=== PATIENT | male | born 1975 | race Caucasian/White ===

== ENCOUNTER 2017-09-15 00:57 | Inpatient (IN) | END 2017-09-17 18:30 | disposition home or self-care (01) | DRG 293 ==

== ENCOUNTER 2018-09-21 12:20 | Observation (INO) | payer MEDICAID, OTHER ==
[~2018-09-21] VITALS: Ht 157.5 cm; Wt 97.4 kg
[~2018-09-21 12:20] MED LIST: CARV3.1260 PO; FURO40TA4 PO; LISI-313 PO; NICO2GUM7 BUCCAL
[2018-09-21] MEDS ORDERED: hydrALAzine 20 MG INJ IV ONE (17:00)
--- NOTE | 2018-09-21 17:15 | ERD ---
ER Documentation Chief Complaint Chief Complaint figueroa, no htn meds x5 mo HPI 43-year-old male with a history of hypertension and combined CHF with last EF 30% in 2018 presenting with complaints of headache and nausea. He has been expe riencing a headache for the past 2 weeks. It is occipital, throbbing, currently 5 out of 10, with occasional blurriness of his vision. Denies any chest pain, shortness of breath, focal weakness or numbness. However he has been experiencing some nausea. He has been off of his antihypertensives for the past 6 months because he did not have insurance or a primary care doctor. Today the headache became more severe overnight, which concerned him, and he came to the ER for evaluation. ROS All systems reviewed and are negative except as per history of present illness. Medications Home Meds Active Scripts Furosemide* (Furosemide*) 40 Mg Tablet, 40 MG PO DAILY for 30 Days, #30 TAB Prov:JASWANT MARTINEZ MD 09/17/17 Lisinopril* (Lisinopril*) 5 Mg Tablet, 5 MG PO DAILY for 30 Days, #30 TAB Prov:JASWANT MARTINEZ MD 09/17/17 Carvedilol* (Carvedilol*) 3.125 Mg Tablet, 3.125 MG PO BID for 30 Days, #60 TAB Prov:JASWANT MARTINEZ MD 09/17/17 Discontinued Scripts Nicotine Polacrilex (Nicorette) 2 Mg Gum, 2 MG BUCCAL Q2H PRN for smoking request for 30 Days, #30 EA Prov:JASWANT MARTINEZ MD 09/17/17 Allergies Allergies: Coded Allergies: No Known Allergy (Unverified , 09/14/17) PMhx/Soc History of Surgery: No Anesthesia Reaction: No Hx Neurological Disorder: No Hx Respiratory Disorders: No Hx Cardiac Disorders: Yes (HTN, combined CHF EF 30%) Hx Psychiatric Problems: No Hx Miscellaneous Medical Probl: Yes (CHF) Hx Alcohol Use: No Hx Substance Use: No Hx Tobacco Use: Yes Smoking Status: Current every day smoker FmHx Family History: diabetes, coronary disease Physical Exam Vitals Vital Signs Date Temp Pulse Resp B/P (MAP) Pulse Ox O2 O2 Flow FiO2 Time Delivery Rate 09/21/18 93 17 128/97 98 Room Air 20:05 (107) 09/21/18 187/106 18:17 (133) 09/21/18 188/101 17:46 (130) 09/21/18 172/107 17:23 (128) 09/21/18 98.4 82 20 228/135 98 12:47 (166) Physical Exam Const: No acute distress Head: Atraumatic Eyes: Normal Conjunctiva, PERRLA, EOMI, no nystagmus ENT: Normal External Ears, Nose and Mouth. Neck: Full range of motion. No meningismus. Resp: Clear to auscultation bilaterally Cardio: Regular rate and rhythm, no murmurs Abd: Soft, non tender, non distended. Normal bowel sounds. 2+ distal pulses in all 4 extremities Skin: No petechiae or rashes Back: No midline or flank tenderness Ext: No cyanosis, or edema Neur: Awake and alert, oriented, no facial asymmetry, normal speech. Drinks and sensations intact in all 4 extremities Psych: Normal Mood and Affect Result Diagram: 09/21/18 1703 09/21/18 1703 Results 24 hrs Laboratory Tests Test 09/21/18 17:03 White Blood Count 6.8 10^3/ul Red Blood Count 5.66 10^6/ul Hemoglobin 16.3 g/dl Hematocrit 47.1 % Mean Corpuscular Volume 83.2 fl Mean Corpuscular Hemoglobin 28.8 pg Mean Corpuscular Hemoglobin Concent 34.6 g/dl Red Cell Distribution Width 12.2 % Platelet Count 282 10^3/UL Mean Platelet Volume 9.5 fl Immature Granulocytes % 0.700 % Neutrophils % 68.5 % Lymphocytes % 18.8 % Monocytes % 7.7 % Eosinophils % 3.4 % Basophils % 0.9 % Nucleated Red Blood Cells % 0.0 /100WBC Immature Granulocytes # 0.050 10^3/ul Neutrophils # 4.6 10^3/ul Lymphocytes # 1.3 10^3/ul Monocytes # 0.5 10^3/ul Eosinophils # 0.2 10^3/ul Basophils # 0.1 10^3/ul Nucleated Red Blood Cells # 0.0 10^3/ul Sodium Level 144 mmol/L Potassium Level 3.2 mmol/L Chloride Level 106 mmol/L Carbon Dioxide Level 29 mmol/L Anion Gap 9 Blood Urea Nitrogen 13 mg/dl Creatinine 1.03 mg/dl Est Glomerular Filtrat Rate mL/min > 60 mL/min Glucose Level 103 mg/dl Calcium Level 8.9 mg/dl Troponin I 0.032 ng/ml Current Medications Medications Dose Sig/Johana Start Time Status Last (Trade) Ordered Route PRN Stop Time Admin Dose Reason Admin Hydralazine 10 mg ONCE ONCE 09/21/18 DC 09/21/18 HCl IV 17:00 09/21/18 17:06 (Apresoline) 17:01 Ondansetron 4 mg ER BRIDGE 09/21/18 DC HCl (Zofran PRN IV 18:30 09/21/18 Inj) NAUSEA/VOMITI 18:56 NG 650 mg ER BRIDGE 09/21/18 DC Acetaminophen PRN PO 18:30 09/21/18 (Tylenol .MILD PAIN 18:56 Tab) 1-3 OR TEMP Carvedilol 3.125 mg BID PO 09/21/18 (Coreg) 21:00 Lisinopril 5 mg DAILY PO 09/21/18 (Zestril) 19:00 IV Flush 3 ml PER 09/21/18 (NS 3 ml) PROTOCOL IV 19:00 Ondansetron 4 mg Q6H PRN 09/21/18 HCl (Zofran PO 19:00 Tab) NAUSEA/VOMITI NG 650 mg Q6H PRN 09/21/18 Acetaminophen PO .PAIN 1-3 19:00 (Tylenol OR TEMP Tab) 1 tab Q6H PRN 09/21/18 09/21/18 Acetaminophen PO .PAIN 4-6 19:00 20:12 / Hydrocodone Bitart ([place] (5/325)) 2 tab Q6H PRN 09/21/18 Acetaminophen PO .PAIN 19:00 / 7-10 Hydrocodone Bitart ([place] (5/325)) Docusate 100 mg Q12H PRN 09/21/18 Sodium PO 19:00 (Colace) .CONSTIPATION Famotidine 20 mg Q12 PO 09/21/18 (Pepcid) 21:00 Enoxaparin 40 mg DAILY SC 09/21/18 Sodium 19:00 (Lovenox) Hydralazine 10 mg Q6H PRN 09/21/18 09/21/18 HCl IV ELEVATED 19:00 19:33 (Apresoline) BLOOD PRESSURE Procedures/MDM EMERGENT LABS AND DIAGNOSTIC STUDIES: Lab Results above were reviewed and interpreted by me. CBC: no anemia or evidence of infection BMP: Mild hypokalemia. No e/o clinically significant electrolyte abnormality severe acidosis, alkalosis, renal failure, diabetic ketoacidosis Troponin within normal limits, not indicative of cardiac ischemia 12-lead EKG was interpreted by Jaky Longoria MD: Sinus bradycardia with ventricular rate of 56 beats per minute Left axis deviation LVH Inferior lateral T wave inversions, concerning for acute ischemia. No acute STEMI Repeat EKG: Rate/Rhythm: Normal Sinus Rhythm QRS, ST, T-waves: Inferior lateral T wave inversions again seen. No ST elevations Impression: Abnormal EKG, possible ischemia, no STEMI Radiology Results as interpreted by Radiology below were reviewed by Rolando Longoria MD: Chest x-ray shows cardiomegaly without acute process Initial Nursing notes reviewed. Previous Medical Records requested via the Electronic Health Record. EMERGENCY DEPARTMENT COURSE / MEDICAL DECISION MAKING: Patient is presenting with severe hypertension, symptomatic with a headache. He was placed on monitors. EKG shows signs of ischemia but troponin is negative and patient does not have any symptoms of ACS. CT head was done and did not show any acute abnormalities. He was treated with hydralazine IV with improvement of his blood pressure. Labs did not show any significant abnormal ities. However patient will require admission for stabilization further work- up. Accepting Care Team: Current data and ongoing care discussed. Time: Time of admission Primary Provider: Dr. Javed Resendez Diagnosis: Primary Impression: Hypertensive crisis Condition: Serious MIKE LONGORIA MD Sep 21, 2018 17:15
[2018-09-21] MEDS ORDERED: ACETAMINOPHEN 325 MG TAB PO PRN ×2 (18:30→19:00)
[2018-09-21] MEDS ORDERED: ONDANSETRON 4 MG INJ IV PRN (18:30)
[2018-09-21] MEDS ORDERED: DOCUSATE SODIUM 100 MG CAP PO PRN (19:00)
[2018-09-21] MEDS ORDERED: NACL 0.9% 3 ML SYG IV SCH (19:00)
[2018-09-21] MEDS ORDERED: ONDANSETRON 4 MG TAB PO PRN (19:00)
[2018-09-21] MEDS: LISINOPRIL 5 MG TAB PO SCH (19:00)
[2018-09-21] MEDS ORDERED: HYDROCODONE/APAP (5/325) TAB PO PRN (19:00)
[2018-09-21] MEDS: hydrALAzine 20 MG INJ IV PRN (19:33)
[2018-09-21] MEDS: HYDROCODONE/APAP (5/325) TAB PO PRN (20:12)
[2018-09-21] MEDS ORDERED: LABETALOL HCL 20MG INJ IV ONE (23:00)
[2018-09-21 23:56] VITALS: Ht 157.5 cm; Wt 97.4 kg
[2018-09-21 23:58] VITALS: PULSE 69
[2018-09-22] VITALS (8 sets, daily range): BP systolic 133–180; BP diastolic 63–100; PULSE 69–94; RESP 18–20
[2018-09-22] MEDS: FAMOTIDINE 20 MG TAB PO SCH ×2 (00:22→08:28)
[2018-09-22] MEDS: ENOXAPARIN 40 MG/0.4 ML SYG SC SCH ×2 (00:25→09:07)
[2018-09-22] MEDS: HYDROCODONE/APAP (5/325) TAB PO PRN (08:28)
[2018-09-22] MEDS: LISINOPRIL 5 MG TAB PO SCH (08:35)
[2018-09-22] MEDS: hydrALAzine 20 MG INJ IV PRN (10:00)
[2018-09-22] MEDS ORDERED: LISI-313 PO (11:55)
[2018-09-22] MEDS ORDERED: FURO40TA4 PO (11:55)
[2018-09-22] MEDS ORDERED: CARV3.1260 PO (11:55)
--- NOTE | 2018-09-22 11:55 | PDOCDIS ---
Discharge Instructions CONDITION [id number] Patient Condition: [id number] Good HOME CARE INSTRUCTIONS: [id number] Diet Instructions: [id number] FOLLOW UP/APPOINTMENTS Follow-up Plan pcp 1 week CALLY REEVES MD Sep 22, 2018 11:55
[2018-09-22] MEDS ORDERED: LISINOPRIL 10 MG TAB PO ONE (13:30)
[2018-09-22] MEDS ORDERED: FUROSEMIDE 40 MG INJ IV ONE (13:30)
--- NOTE | 2018-09-22 14:58 | RADRPT ---
Echocardiogram Report Patient Name: ERICKA MORALESPatient ID: [id number] : 1975 (43y 4m)Study Date: 09/22/2018 9:36:11 AM Gender: MAccession #: [id number] Tech: Kayleigh Floyd [facility] Location: 626- Ref.Physician: JAJA STARK Height(Cm): BSA: Weight(Kg): Quality: AdequateOrder Physician: JAJA STARK Account #: Procedures: Echocardiographic Report: Transthoracic echocardiogram with complete 2D, M-Mode, and doppler examination. Indications: Hypertensive emergency. Measurements: 2D/M Mode Doppler Measurement Value Normal Range Measurement Value Normal Range LVIDd 2D 5.3 [ 4.2 - 5.8 ] cm AV Peak Sourav 1.4 [ 100.0 - 170.0 ] cm/se c LVIDs 2D 3.9 [ 2.5 - 4.0 ] cm AV Peak PG 8.0 [ 2.0 - 9.0 ] mmHg LVPWd 2D 1.4 [ 0.6 - 1.0 ] cm LVOT Peak Sourav 0.7 [ 70.0 - 110.0 ] cm/sec IVSd 2D 1.3 [ 0.6 - 1.0 ] cm LVOT Peak PG 2.0 [ 2.0 - 6.0 ] mmHg EDV 2D 136.0 [ 62.0 - 150.0 ] ml MV E Peak Sourav 0.6 [ 60.0 - 130.0 ] cm/sec ESV 2D 64.7 [ 21.0 - 61.0 ] ml MV A Peak Sourav 0.7 [ 100.0 - 120.0 ] cm/se c EF 2D 52.4 [ 52.0 - 72.0 ] percent MV E/A 0.8 [ 0.8 - 1.5 ] ratio MV PHT 51.0 [ 20.0 - 100.0 ] msec MV Decel Time 173 [ 104 - 258 ] msec MV Decel [place] 3 Lat E` Sourav 0.1 [ 10.0 - 15.0 ] cm/sec Lateral E/E` 10.0 [ 1.0 - 2.0 ] ratio Med E` Sourav 0.1 cm/sec MV E/A 0.8 [ 0.8 - 1.5 ] ratio MVA PHT 4.3 [ 2.0 - 4.0 ] cm2 Findings: Left Ventricle: Normal left ventricular cavity size. Moderate concentric left ventricular hypertrophy. Mild left ventricular systolic dysfunction. Ejection fraction is visually estimated at 45-50 %. Tissue Doppler/Mitral Doppler indices are consistent with impaired relaxation (Stage I diastolic dysfunction). Right Ventricle: Normal right ventricular size. Normal right ventricular systolic function. Left Atrium: The left atrium is normal in size. Right Atrium: The right atrium is normal in size. Atrial Septum: Normal atrial septum. Ventricular septum: Normal/intact ventricular septum. Mitral Valve: Normal appearance and function of the mitral valve with trace physiologic regurgitation. Aortic Valve: Normal appearance of the aortic valve. No significant aortic stenosis or insufficiency. Tricuspid Valve: Normal appearance and function of the tricuspid valve with trace physiologic regurgitation. Pulmonic Valve: Normal pulmonic valve appearance. No evidence of pulmonic regurgitation. Pericardium: Normal pericardium with no significant pericardial effusion. Aorta: Normal aortic root. IVC: Normal size and normal respiratory collapse consistent with normal right atrial pressure. Conclusions: Normal left ventricular cavity size. Moderate concentric left ventricular hypertrophy. Mild left ventricular systolic dysfunction. Ejection fraction is visually estimated at 45-50 %. Tissue Doppler/Mitral Doppler indices are consistent with impaired relaxation (Stage I diastolic dysfunction). Normal right ventricular size. Normal right ventricular systolic function. The left atrium is normal in size. The right atrium is normal in size. No significant valvular stenosis or regurgitation seen. Normal pericardium with no significant pericardial effusion. Electronically Signed By: Von Fry 2018-09-22 14:57:47 PDT
--- NOTE | 2018-09-22 14:59 | HP ---
DATE OF ADMISSION: 09/21/2018 REASON FOR VISIT: No blood pressure medicines for 5 months. COMPLAINT: Complaining of headache. HISTORY OF PRESENT ILLNESS: A 43-year-old male with a history of chronic hypertension as well as con gestive heart failure, who presented to Emergency Room with complaint of headaches and nausea. The p sriram has been having headaches for the last 2 weeks prior to admission. He denies any chest pain o r shortness of breath. No visual changes. No vomiting. The patient was previously on multiple anti hypertensives. He stopped taking all of his medications in February of 2018 because he did not havin [employer] insurance or primary doctor. Initial evaluation in the Emergency Room revealed a blood pressure of 228/135. Patient had mild hypokalemia with potassium of 3.2. Initial evaluation including brain CT was otherwise unremarkable. Chest x-ray showed cardiomegaly. PAST MEDICAL HISTORY: 1. Hypertension. 2. Chronic congestive heart failure. MEDICATIONS PRIOR TO ADMISSION: None. SOCIAL HISTORY: Patient lives at home, admits to smoking on daily basis and drinks alcohol on social occasions. PHYSICAL EXAMINATION: GENERAL: Well-developed, well-nourished male who is in no apparent distress. VITAL SIGNS: Stable. He is afebrile. Blood pressure improved to 152/92 with a pulse of 83. HEENT: Extraocular muscles intact. Pupils are equal and reactive to light bilaterally. Sclerae are anicteric. Oropharynx is clear and moist. NECK: Supple, no JVD, no carotid bruits. LUNGS: Clear to auscultation bilaterally. CARDIAC: Regular rate and rhythm. No murmurs or gallops. ABDOMEN: Soft, nontender, nondistended, normoactive bowel sounds, obese. EXTREMITIES: No clubbing, cyanosis, or edema. NEUROLOGICAL: Nonfocal. LABORATORY DATA: Within normal limits. ASSESSMENT: A 43-year-old male with: 1. Hypertensive urgency, resolved. 2. Combined congestive heart failure with EF of 30%, compensated. 3. Noncompliance with medical therapy and followup. PLAN: Place in tele observation. Continue previous home medications including Lasix, AZALEA inhibitor and Coreg. Dictated By: CALLY POWERS/NORA Conf#: [id number] DID#: [id number] CC: JAJA STARK MD;*EndCC*
[2018-09-22] MEDS ORDERED: POTASSIUM CHLORIDE (SR) 20 MEQ TAB PO STA (15:22)
--- NOTE | 2018-09-22 16:29 | DS ---
DATE OF ADMISSION: 09/21/2018 DATE OF DISCHARGE: 09/21/2018 DISCHARGE DIAGNOSES: 1. A 43-year-old male with hypertensive urgency, resolved. 2. Headaches x2 weeks due to poorly controlled hypertension, resolved. 3. Combined congestive heart failure with an ejection fraction of 30%, compensated. 4. Noncompliance with medical therapy and followup. HOSPITAL COURSE: A 43-year-old male with a history of chronic hypertension and combined congestive h eart failure with EF of 30% in 2018, presented with complaints of headache and nausea. The patient w as found to be in hypertensive urgency with systolic blood pressure as high as 228/135. The patient stopped taking all of his antihypertensives in February of 2018 due to insurance reasons and lack of primary doctor. Medications were resumed. His blood pressure was stabilized. I had a long talk with him and multipl e family members regarding compliance with medical therapy and PCP follow up. Patient is asymptomati c. He is in stable condition for discharge. I also talked to him regarding smoking cessation. MEDICATIONS ON DISCHARGE: 1. Carvedilol 3.125 mg b.i.d. 2. Lisinopril 10 mg daily. 3. Lasix 40 mg daily. PLAN: 1. Follow up with PCP in 1 week. 2. Adhere to a low sodium diet. Dictated By: CALLY POWERS/NORA Conf#: [id number] DID#: [id number] CC: JAJA STARK MD;*EndCC*
== END 2018-09-22 16:50 | disposition home or self-care (01) ==
LOC: E/R 12:20 → 6WM 18:27
PROVIDERS: ADMIT Internal Medicine; ATTEND Internal Medicine
DX: I16.0 Hypertensive urgency (principal); I11.0 Hypertensive heart disease with heart failure; I50.40 Unspecified combined systolic (congestive) and diastolic (congestive) heart failure; Z91.14 Patient's other noncompliance with medication regimen; R51 Headache
CPT/HCPCS: 36415; 70450; 71045; 80048; 83036; 84443; 84484; 85025; 93005; 93306; 96374; J0360; J1650; J1940; Z7500; Z7502; Z7610; G0378

== ENCOUNTER 2018-11-29 18:30 | Emergency (ER) | payer OTHER ==
[~2018-11-29] VITALS: Ht 167.6 cm; Wt 97.8 kg
[~2018-11-29 18:30] MED LIST changes: -NICO2GUM7 BUCCAL
[2018-11-29 18:35] VITALS: Ht 167.6 cm; Wt 97.8 kg
[2018-11-29 20:17] VITALS: BP 141/85; PULSE 66; RESP 16
[2018-11-29] MEDS ORDERED: ACETAMINOPHEN 325 MG TAB PO ONE (20:30)
== END 2018-11-29 20:29 | disposition home or self-care (01) ==
LOC: E/R 18:30
DX: I11.0 Hypertensive heart disease with heart failure (principal); I50.9 Heart failure, unspecified
CPT/HCPCS: Z7502; Z7610; 99282